=== PATIENT | male | born 1995 | race Caucasian/White ===

== ENCOUNTER 2017-03-02 11:21 | Emergency (ER) | payer OTHER ==
[~2017-03-02] VITALS: Ht 170.2 cm; Wt 72.6 kg
[2017-03-02 11:33] VITALS: BP 150/83
--- NOTE | 2017-03-02 12:37 | NUR ---
[place] back [place] via [facility] per tech--to lobby.
--- NOTE | 2017-03-02 13:10 | NUR ---
Patient ambulated to bed 04.
--- NOTE | 2017-03-02 13:15 | NUR ---
21M BIB MOTHER C/O CONSTIPATION YESTERDAY; PT STATES HAD BOWEL MOVEMENT TODAY; ABDOMEN SOFT, NON-TENDER, ACTIVE BOWEL SOUNDS X 4 QUADRANTS; PT STATES HAS LEFT LOWER ABDOMINAL PAIN, RADIATES TO LEFT TESTICLE X 2 DAYS W/ MOVEMENT; PT STATES NO HEMATURIA, SWELLING OR DRAINAGE FROM PENIS AT THIS TIME. PT STATES 0/10 PAIN AT THIS TIME; PT STATES NO N/V/D AT THIS TIME; PT STATES FELL X 1 WEEK, STATES NO LOC AT THE TIME; PT NOTED W/ ABRASIONS TO BL HANDS, BL ELBOWS, AND RT FLANK FROM FALL; NO BLEEDING NOTED TO SITES AT THIS TIME; SKIN IS WARM/DRY; PT AA&OX4, PERRLA, BL LUNG SOUNDS CLEAR, RR EVEN/UNLABORED, STEADY GAIT; PT RESTING IN BED W/ HOB ELEVATED AND IN LOWEST POSITION; POSITIONED FOR COMFORT; ER MD MADE AWARE OF STATUS. WILL CONTINUE TO MONITOR.
--- NOTE | 2017-03-02 13:35 | NUR ---
ER MD DR. LANCASTER EVALUATING PT AT BEDSIDE.
--- NOTE | 2017-03-02 13:36 | NUR ---
PER ER MD DR. LANCASTER, NO PO CHALLENGE NEEDED AT THIS TIME.
[2017-03-02 14:00] VITALS: BP 143/69
--- NOTE | 2017-03-02 14:00 | NUR ---
Patient discharged with v/s stable. Written and verbal after care instructions given and explained. Patient alert, oriented and verbalized understanding of instructions. Ambulatory with steady gait. All questions addressed prior to discharge. ID band removed. Patient advised to follow up with PMD. Rx of ZOFRAN ODT 4MG & NORCO 5MG-325MG TAB given. Patient educated on indication of medication including possible reaction and side effects. Opportunity to ask questions provided and answered.
== END 2017-03-02 14:00 | disposition home or self-care (01) ==
LOC: MED 11:21
CPT/HCPCS: 74022; 76870; 81002; 99284

== ENCOUNTER 2018-06-12 03:18 | Emergency (ER) | payer OTHER ==
[~2018-06-12] VITALS: Ht 170.2 cm; Wt 74.8 kg
[2018-06-12 03:24] VITALS: BP 133/90
[2018-06-12 05:21] VITALS: BP 127/74
== END 2018-06-12 05:20 | disposition home or self-care (01) ==
LOC: MED 03:18
DX: K62.89 Other specified diseases of anus and rectum (principal)
CPT/HCPCS: 99283

== ENCOUNTER 2018-06-13 06:10 | Emergency (ER) | payer OTHER ==
[~2018-06-13] VITALS: Ht 170.2 cm; Wt 77.1 kg
[2018-06-13 06:17] VITALS: BP 134/90
--- NOTE | 2018-06-13 06:17 | NUR ---
TO BED # 11 AMBULATORY, REPORT GIVEN TO MICHELLE COLE
--- NOTE | 2018-06-13 06:32 | NUR ---
22/M CAME IN WITH MOTHER, C/O 06/14 UNRELIEVED CONSTANT RECTAL PAIN X5 DAYS, WORSENED BY HAVING BM AND WHEN EXERTING PRESSURE TO URINATE. PT WAS SEEN HERE YESTERDAY FOR SAME SYMPTOMS, WAS GIVEN RX RECTICARE, IBUPROFEN, LACTULOSE AND COLACE WITH SOME RELIEF. LBM TODAY, PT REPORTS SOFT STOOL. BS ACTIVE X4, ABD SOFT ROUND NONTENDER. PT DENIES FEVER, RECTAL BLEED, N/V, DYSURIA. DENIES HX
--- NOTE | 2018-06-13 07:02 | NUR ---
DR TRIANA AT BEDSIDE TO EVALUATE PT
[2018-06-13] MEDS ORDERED: DICYCLOMINE 20 MG/2 ML VIAL IM ONE (07:10)
--- NOTE | 2018-06-13 07:14 | NUR ---
Pt report given to YONATAN. Transfer of care at this time.
[2018-06-13 07:50] VITALS: BP 130/86
--- NOTE | 2018-06-13 07:50 | NUR ---
Patient discharged with v/s stable. Written and verbal after care instructions given and explained. Patient alert, oriented and verbalized understanding of instructions. Ambulatory with steady gait. All questions addressed prior to discharge. ID band removed. Patient advised to follow up with PMD. Rx of BENTYL 20 MG TAB given. Patient educated on indication of medication including possible reaction and side effects. Opportunity to ask questions provided and answered.
== END 2018-06-13 07:50 | disposition home or self-care (01) ==
LOC: MED 06:10
DX: K62.89 Other specified diseases of anus and rectum (principal); R03.0 Elevated blood-pressure reading, without diagnosis of hypertension
CPT/HCPCS: 96372; 99283; J0500

== ENCOUNTER 2023-06-12 12:11 | Emergency (ER) | payer OTHER ==
[~2023-06-12] VITALS: Ht 170.2 cm; Wt 89.8 kg
[2023-06-12 12:17] VITALS: BP 131/61; PULSE 91; RESP 18; TEMP 98.3; O2SAT 98
[2023-06-12] MEDS ORDERED: IBUPROFEN 600 MG TAB PO ONE (12:35)
[2023-06-12] MEDS ORDERED: LIDOCAINE MPF 1% 10 MG/ML VIAL INJ ONE (12:35)
[2023-06-12 12:50] VITALS: O2SAT 98
[2023-06-12] MEDS ORDERED: IBUP-2213 PO (13:05)
[2023-06-12] MEDS ORDERED: SULF-59 PO (13:05)
[2023-06-12] MEDS ORDERED: CEPH-588 PO (13:05)
[2023-06-12 13:18] VITALS: BP 131/61; PULSE 91; RESP 18; TEMP 98.3; O2SAT 98
== END 2023-06-12 13:19 | disposition home or self-care (01) ==
LOC: MED 12:11
DX: L02.411 Cutaneous abscess of right axilla (principal); Z79.899 Other long term (current) drug therapy
CPT/HCPCS: 99283

== ENCOUNTER → 2023-06-14 | Emergency (ER) | payer OTHER ==
[~2023-06-14] VITALS: Ht 170.2 cm; Wt 89.8 kg
[~2023-06-14] MED LIST: CEPH-588 PO; IBUP-2213 PO; SULF-59 PO
[2023-06-14 11:21] VITALS: BP 121/66; PULSE 65; RESP 20; TEMP 98; O2SAT 98
[2023-06-14 13:00] VITALS: O2SAT 98
[2023-06-14 13:38] VITALS: BP 120/66; PULSE 79; RESP 20; TEMP 98; O2SAT 99
== END | disposition home or self-care (01) ==
LOC: MED 10:59
DX: L02.411 Cutaneous abscess of right axilla (principal); Z48.00 Encounter for change or removal of nonsurgical wound dressing
CPT/HCPCS: 99281

== ENCOUNTER 2023-06-16 12:37 | Emergency (ER) | payer OTHER ==
[~2023-06-16] VITALS: Ht 170.2 cm; Wt 89.8 kg
[2023-06-16 12:53] VITALS: BP 124/78; PULSE 86; RESP 16; TEMP 98.6; O2SAT 100
[2023-06-16 13:16] VITALS: BP 155/86; PULSE 64; RESP 18; TEMP 97; O2SAT 98
== END 2023-06-16 13:21 | disposition home or self-care (01) ==
LOC: MED 12:37
DX: Z48.01 Encounter for change or removal of surgical wound dressing (principal); R03.0 Elevated blood-pressure reading, without diagnosis of hypertension; Z79.1 Long term (current) use of non-steroidal anti-inflammatories (NSAID); Z79.2 Long term (current) use of antibiotics
CPT/HCPCS: 99281